=== PATIENT | female | born 1995 | race African-American/Black ===

== ENCOUNTER 2022-06-08 08:58 | Emergency (ER) | payer OTHER ==
[~2022-06-08] VITALS: Ht 165.1 cm; Wt 58.1 kg
[2022-06-08 09:23] VITALS: BP 110/67
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
[2022-06-08] MEDS ORDERED: IBUP-1955 PO (10:12)
--- NOTE | 2022-06-08 10:56 | NUR ---
Patient discharged to home in stable condition. Written and verbal after care instructions given. Patient verbalizes understanding of instruction.
== END 2022-06-08 10:59 | disposition home or self-care (01) ==
LOC: ER 09:01
DX: S46.912A Strain of unspecified muscle, fascia and tendon at shoulder and upper arm level, left arm, initial encounter (principal); Z60.2 Problems related to living alone; V49.49XA Driver injured in collision with other motor vehicles in traffic accident, initial encounter; Y93.89 Activity, other specified; Y92.413 State road as the place of occurrence of the external cause; Y99.8 Other external cause status
CPT/HCPCS: 73030-TC